=== PATIENT | female | born 1980 | race African-American/Black ===

== ENCOUNTER 2019-01-10 09:58 | Inpatient (IN) | payer OTHER ==
[~2019-01-10] VITALS: Ht 165.1 cm; Wt 63.5 kg
[2019-01-10] MEDS ORDERED: ASPIRIN 81MG TABLET PO ONE (11:30)
[2019-01-10 12:16] LABS: BASOPHILS % 0.2 % (0.0-2.0); HEMATOCRIT. 32.5 % (36.0-48.0); HEMOGLOBIN. 10.7 g/dL (12.0-16.0); LYMPHOCYTES % 12.6 % (20.0-50.0); MEAN CORPUSCULAR HEMOGLOBIN 28.4 pg (28.0-32.0); MEAN CORPUSCULAR VOLUME 85.9 fL (81.0-99.0); MEAN PLATELET VOLUME 8.1 fl (7.4-10.4); MONOCYTES % 8.8 % (2.0-8.0); NEUTROPHILS % 78.4 % (40.0-76.0); PLATELET 169 x1000/uL (130-400); RED BLOOD CELL COUNT 3.78 mill/uL (4.2-5.4); RED CELL DISTRIBUTION WIDTH 19.1 % (11.6-14.6)
[2019-01-10 12:19] LABS: CHLORIDE 116 mEq/L (98-107)
[2019-01-10 12:21] LABS: PARTIAL THROMBOPLASTIN TIME 22.2 sec (23.4-31.0)
[2019-01-10 12:23] LABS: ETHANOL BLOOD < 10 mg/dL
[2019-01-10 12:25] LABS: HCG SCREEN NEGATIVE
[2019-01-10 12:28] LABS: CREATINE KINASE 109 IU/L (26-192)
[2019-01-10] MEDS ORDERED: ONDANSETRON 4MG ODT PO ONE (13:15)
[2019-01-10] MEDS ORDERED: DILTIAZEM HCL 30MG TABLET PO ONE (13:15)
[2019-01-10] MEDS ORDERED: ONDANSETRON HCL 4MG/2ML INJ IV ONE (13:15)
[2019-01-10] MEDS ORDERED: KCL 20MEQ/100ML PREMIX 100 ML IV ONE (14:15)
[2019-01-10] MEDS ORDERED: LORAZEPAM 2MG/ML CPJ IV PRN (17:15)
[2019-01-10] MEDS ORDERED: HYDROCODONE/ACETAMINOPHEN 5/325MG TABLET PO PRN ×2 (17:15→22:45)
[2019-01-10] MEDS ORDERED: CLONIDINE 0.1MG TABLET PO PRN (17:15)
[2019-01-10] MEDS ORDERED: MAGNESIUM/ALUMINUM HYDROXIDE/SIMETHICONE 30ML UDC PO PRN (17:15)
[2019-01-10] MEDS ORDERED: ONDANSETRON HCL 4MG/2ML INJ IV PRN ×2 (17:15→22:45)
[2019-01-10] MEDS: SODIUM CHLORIDE 0.9% 1,000 ML IV SCH (18:19)
[2019-01-10 19:10] LABS: CLARITY URINE CLEAR (CLEAR); COLOR URINE YELLOW (YELLOW); KETONES URINE NEGATIVE (NEGATIVE); LEUKOCYTE ESTERASE URINE NEGATIVE (NEGATIVE); NITRITE URINE NEGATIVE (NEGATIVE); OCCULT BLOOD URINE TRACE (NEGATIVE); PH URINE 6.5 (4.5-8.0); PROTEIN URINE NEGATIVE (NEGATIVE); SPECIFIC GRAVITY URINE 1.014 (1.005-1.030); UROBILINOGEN URINE 0.2 E.U./dL (0.2-1.0)
[2019-01-10 19:26] LABS: *AMPHETAMINES SCREEN URINE NEGATIVE (NEGATIVE); *BENZODIAZEPINES SCREEN URINE NEGATIVE (NEGATIVE); *COCAINE SCREEN URINE NEGATIVE (NEGATIVE)
[2019-01-10 19:27] LABS: METHADONE URINE SCREEN NEGATIVE (NEGATIVE); OPIATES URINE SCREEN NEGATIVE (NEGATIVE); PHENCYCLIDINE URINE SCREEN NEGATIVE (NEGATIVE)
[2019-01-10 19:28] LABS: *BARBITURATES SCREEN URINE NEGATIVE (NEGATIVE)
[2019-01-10 20:12] LABS: CANNABINOID URINE SCREEN PRESUMTIVE POSITIVE (NEGATIVE)
[2019-01-10] MEDS ORDERED: SODIUM CHLORIDE 0.9% 1,000 ML IV SCH (22:37)
[2019-01-10] MEDS ORDERED: KCL 10MEQ/50ML PREMIX 50 ML IV ONE (22:45)
[2019-01-10] MEDS ORDERED: MORPHINE SULFATE 2 MG/ML CPJ (NOT FOR IM USE) IV PRN (22:45)
[2019-01-10] MEDS ORDERED: DOCUSATE SODIUM 100MG CAPSULE PO PRN (22:45)
[2019-01-10] MEDS ORDERED: ACETAMINOPHEN 325MG TABLET PO PRN (22:45)
[2019-01-11] MEDS: MORPHINE SULFATE 4 MG/ML CPJ (NOT FOR IM USE) IV PRN ×3 (03:24→16:10)
[2019-01-11] MEDS: SODIUM CHLORIDE 0.9% 1,000 ML IV SCH (03:27)
[2019-01-11 03:30] VITALS: BP 117/84
[2019-01-11] MEDS ORDERED: TC025C15 TOP (04:49)
[2019-01-11] MEDS ORDERED: LORA2TAB2 PO (04:50)
[2019-01-11] MEDS ORDERED: HYDR200T35 PO (04:51)
[2019-01-11] MEDS ORDERED: MINO2.5T2 PO (04:52)
[2019-01-11] MEDS ORDERED: FERR325T6 PO (04:54)
[2019-01-11] MEDS ORDERED: METO25TA6 PO (04:54)
[2019-01-11] MEDS ORDERED: ASPI-986 PO (04:56)
[2019-01-11] MEDS ORDERED: ASPI-1158 PO (04:56)
[2019-01-11] MEDS ORDERED: METR-218 PO (04:57)
[2019-01-11] MEDS ORDERED: FLUC200T51 PO (04:58)
[2019-01-11] MEDS ORDERED: KCL 10MEQ/50ML PREMIX 50 ML IV NR (05:00)
[2019-01-11] MEDS ORDERED: OMEP20TA2 PO (05:01)
[2019-01-11] MEDS ORDERED: PRED10TA23 PO (05:01)
[2019-01-11] MEDS ORDERED: MYCO360T PO (05:03)
[2019-01-11 08:00] VITALS: BP 112/77
[2019-01-11] MEDS ORDERED: FOLIC ACID 1MG TABLET PO SCH (09:00)
[2019-01-11] MEDS ORDERED: AMLODIPINE 10MG TABLET PO SCH (09:00)
[2019-01-11] MEDS ORDERED: ENOXAPARIN 40MG/0.4ML SYR SUBCUT SCH (09:00)
[2019-01-11] MEDS ORDERED: ASPIRIN 81MG EC TABLET PO SCH (09:00)
[2019-01-11] MEDS: THIAMINE HCL 100MG TABLET PO SCH (09:56)
[2019-01-11] MEDS: ASPIRIN 81MG EC TABLET PO SCH (09:56)
[2019-01-11] MEDS: MYCOPHENOLATE SODIUM 180 MG TABLET.DR PO SCH ×2 (09:56→18:06)
[2019-01-11] MEDS: FOLIC ACID 1MG TABLET PO SCH (09:57)
[2019-01-11] MEDS: HYDROXYCHLOROQUINE SULFATE 200MG TABLET PO SCH ×2 (10:03→18:05)
[2019-01-11 12:00] VITALS: BP 119/85
[2019-01-11 12:50] LABS: BASOPHILS % 0.3 % (0.0-2.0); HEMATOCRIT. 32.2 % (36.0-48.0); HEMOGLOBIN. 10.8 g/dL (12.0-16.0); MEAN CORPUSCULAR HEMOGLOBIN 28.5 pg (28.0-32.0); MEAN CORPUSCULAR VOLUME 85.4 fL (81.0-99.0); MEAN PLATELET VOLUME 8.1 fl (7.4-10.4); MONOCYTES % 6.5 % (2.0-8.0); NEUTROPHILS % 78.2 % (40.0-76.0); PLATELET 158 x1000/uL (130-400); RED BLOOD CELL COUNT 3.77 mill/uL (4.2-5.4); RED CELL DISTRIBUTION WIDTH 19.1 % (11.6-14.6)
[2019-01-11 12:57] LABS: CHLORIDE 114 mEq/L (98-107)
[2019-01-11] MEDS: POTASSIUM CHLORIDE 20MEQ TABLET SR PO SCH (13:24)
[2019-01-11] MEDS ORDERED: POTASSIUM CHLORIDE 20MEQ TABLET SR PO SCH (14:15)
[2019-01-11 16:00] VITALS: BP 113/85
[2019-01-11] MEDS ORDERED: DILTIAZEM HCL 5MG/ML 5ML VIAL IV NR (16:15)
[2019-01-11] MEDS ORDERED: DILTIAZEM HCL 5MG/ML 5ML VIAL IV PRN (16:30)
[2019-01-11] MEDS: DILTIAZEM HCL 60MG TABLET PO SCH (18:00)
[2019-01-11] MEDS: ENOXAPARIN 80MG/0.8ML SYR SUBCUT SCH (18:18)
[2019-01-11 20:00] VITALS: BP 100/63
[2019-01-11] MEDS: DEXT 5%/0.9% NACL 1,000 ML IV SCH (23:19)
[2019-01-12] VITALS: BP 101/59
[2019-01-12 04:00] VITALS: BP 120/85
[2019-01-12] MEDS: DILTIAZEM HCL 60MG TABLET PO SCH ×4 (05:12→17:57)
[2019-01-12] MEDS: ENOXAPARIN 80MG/0.8ML SYR SUBCUT SCH (05:12)
[2019-01-12 06:43] LABS: CHLORIDE 110 mEq/L (98-107)
[2019-01-12 06:58] LABS: LDL CHOLESTEROL 122 mg/dL (5-100)
[2019-01-12 07:00] LABS: HDL CHOLESTEROL 40 mg/dL (40-59)
[2019-01-12 07:43] LABS: BASOPHILS % 0.1 % (0.0-2.0); EOSINOPHILS % 0.2 % (0.0-5.0); HEMATOCRIT. 29.2 % (36.0-48.0); HEMOGLOBIN. 9.9 g/dL (12.0-16.0); LYMPHOCYTES % 19.7 % (20.0-50.0); MEAN CORPUSCULAR HEMOGLOBIN 29.1 pg (28.0-32.0); MEAN CORPUSCULAR VOLUME 85.7 fL (81.0-99.0); MEAN PLATELET VOLUME 8.3 fl (7.4-10.4); MONOCYTES % 5.9 % (2.0-8.0); NEUTROPHILS % 74.1 % (40.0-76.0); PLATELET 152 x1000/uL (130-400); RED BLOOD CELL COUNT 3.41 mill/uL (4.2-5.4); RED CELL DISTRIBUTION WIDTH 19.3 % (11.6-14.6)
[2019-01-12 08:00] VITALS: BP 108/68
[2019-01-12] MEDS: POTASSIUM CHLORIDE 20MEQ TABLET SR PO SCH ×2 (09:00→09:36)
[2019-01-12] MEDS ORDERED: POTASSIUM CHLORIDE 20MEQ TABLET SR PO SCH (09:00)
[2019-01-12] MEDS: HYDROXYCHLOROQUINE SULFATE 200MG TABLET PO SCH ×2 (09:35→17:55)
[2019-01-12] MEDS: MYCOPHENOLATE SODIUM 180 MG TABLET.DR PO SCH ×2 (09:35→17:55)
[2019-01-12] MEDS: ASPIRIN 81MG EC TABLET PO SCH (09:36)
[2019-01-12] MEDS: THIAMINE HCL 100MG TABLET PO SCH (09:36)
[2019-01-12] MEDS: FOLIC ACID 1MG TABLET PO SCH (09:36)
[2019-01-12] MEDS: POTASSIUM CHLORIDE 20MEQ TABLET SR PO NR ×2 (09:45→10:26)
[2019-01-12] MEDS ORDERED: MAGNESIUM 2 G PREMIX 50 ML IV NR (12:00)
[2019-01-12] MEDS ORDERED: KCL 20MEQ/100ML PREMIX 100 ML IV NR (12:00)
[2019-01-12] MEDS: DEXT 5%/0.9% NACL 1,000 ML IV SCH (14:06)
[2019-01-12] MEDS: MORPHINE SULFATE 4 MG/ML CPJ (NOT FOR IM USE) IV PRN ×2 (14:20→19:05)
[2019-01-12 16:00] VITALS: BP 109/73
[2019-01-12 20:00] VITALS: BP 107/69
[2019-01-12] MEDS ORDERED: ENOXAPARIN 60MG/0.6ML SYR SUBCUT SCH (21:00)
[2019-01-12 21:16] VITALS: BP 107/69
== END 2019-01-12 22:40 | disposition short-term general hospital (02) | DRG 545 ==
LOC: ER 10:14 → EDBEDREQ 14:40 → ENRESERV 01-11 00:54 → 8WST 01-11 02:52
PROVIDERS: ADMIT Internal Medicine Nephrology; ATTEND Internal Medicine Nephrology
DX: M32.14 Glomerular disease in systemic lupus erythematosus (principal); K85.90 Acute pancreatitis without necrosis or infection, unspecified; E43 Unspecified severe protein-calorie malnutrition; D63.8 Anemia in other chronic diseases classified elsewhere; E83.42 Hypomagnesemia; E87.6 Hypokalemia; I48.0 Paroxysmal atrial fibrillation; F41.9 Anxiety disorder, unspecified; Z90.49 Acquired absence of other specified parts of digestive tract; Z68.23 Body mass index [BMI] 23.0-23.9, adult; Z98.891 History of uterine scar from previous surgery; Z79.899 Other long term (current) drug therapy; Z88.0 Allergy status to penicillin
CPT/HCPCS: 36415; 71045; 80048; 80061; 80305; 82550; 83605; 83735; 83880; 84443; 84484; 84703; 87077; 87186; 93005; 93306; 96365; 96366; 96372; 96375; 97163; 99285; J1650; J2270; J2405; J3475; J3480; J3490; J7042; J7050; J7517

== ENCOUNTER 2020-11-15 11:18 | Emergency (ER) | payer OTHER ==
[~2020-11-15] VITALS: Ht 160 cm; Wt 70.0 kg
[~2020-11-15 11:18] MED LIST: ASPI-1158 PO; FERR325T6 PO; FLUC200T51 PO; HYDR200T35 PO; LORA2TAB2 PO; METO25TA6 PO; METR-167 PO; MINO2.5T2 PO; MYCO360T PO; OMEP20TA2 PO; PRED10TA23 PO; TC025C15 TOP
[2020-11-15 11:25] VITALS: BP 144/86
== END 2020-11-15 13:22 | disposition left against medical advice (07) ==
LOC: ER 11:31
DX: R53.1 Weakness (principal); F41.9 Anxiety disorder, unspecified; M32.9 Systemic lupus erythematosus, unspecified; I10 Essential (primary) hypertension; I48.91 Unspecified atrial fibrillation; Z88.2 Allergy status to sulfonamides; Z79.82 Long term (current) use of aspirin; Z79.01 Long term (current) use of anticoagulants
CPT/HCPCS: 93005; 99283

== ENCOUNTER 2025-06-15 23:37 | Emergency (ER) | payer OTHER ==
[~2025-06-15] VITALS: Ht 160 cm; Wt 59.0 kg
[~2025-06-15 23:37] MED LIST changes: -ASPI-1158 PO; +ASPI-1406 PO; -OMEP20TA2 PO; +OMEP20TA23 PO
[2025-06-15 23:54] VITALS: O2SAT 100
[2025-06-16 01:52] LABS: BASOPHILS % 1.2 % (0.0-2.0); EOSINOPHILS % 8.5 % (0.0-5.0); HEMATOCRIT. 30.4 % (36.0-48.0); HEMOGLOBIN. 10.4 g/dL (12.0-16.0); LYMPHOCYTES % 16.8 % (20.0-50.0); MEAN PLATELET VOLUME 7.2 fl (7.4-10.4); MONOCYTES % 7.2 % (2.0-8.0); NEUTROPHILS % 66.3 % (40.0-76.0); PLATELET 87 x1000/uL (130-400); RED BLOOD CELL COUNT 3.47 mill/uL (4.2-5.4); RED CELL DISTRIBUTION WIDTH 19.5 % (11.6-14.6)
[2025-06-16 02:06] LABS: INR 1.0
[2025-06-16 02:08] LABS: UREA NITROGEN BLOOD 35 mg/dL (9-23)
[2025-06-16 02:09] LABS: ETHANOL BLOOD < 10 mg/dL (<10); TROPONIN I HIGH SENSITIVITY 17 ng/L (3.0-34)
[2025-06-16] MEDS: ACETAMINOPHEN 325MG TABLET PO NR (02:12)
[2025-06-16] MEDS: MORPHINE SULFATE 2 MG/ML INJ (NOT FOR IM USE) IV NR (02:13)
[2025-06-16 02:33] LABS: CREATININE 6.5 mg/dL (0.6-1.0)
[2025-06-16] MEDS: HYDRALAZINE 20MG/ML VIAL IV NR (04:16)
[2025-06-16 06:13] LABS: TROPONIN I HIGH SENSITIVITY 11 ng/L (3.0-34)
[2025-06-16 06:19] LABS: *AMPHETAMINES SCREEN URINE NEGATIVE (NEGATIVE); *BARBITURATES SCREEN URINE NEGATIVE (NEGATIVE); *BENZODIAZEPINES SCREEN URINE NEGATIVE (NEGATIVE); *COCAINE SCREEN URINE NEGATIVE (NEGATIVE); CANNABINOID URINE SCREEN NEGATIVE (NEGATIVE); ECSTASY MDMA SCREEN URINE NEGATIVE (NEGATIVE); METHADONE URINE SCREEN NEGATIVE (NEGATIVE); PHENCYCLIDINE URINE SCREEN NEGATIVE (NEGATIVE)
[2025-06-16] MEDS: HYDRALAZINE 20MG/ML VIAL IV ONE (06:31)
[2025-06-16 06:32] VITALS: BP 183/104; PULSE 57; RESP 14; TEMP 36.7; O2SAT 100
[2025-06-16 06:37] LABS: OPIATES URINE SCREEN NEGATIVE (NEGATIVE)
== END 2025-06-16 07:00 | disposition short-term general hospital (02) ==
LOC: ER 23:37 → EDBEDREQTM 06-16 05:17 → EDBEDREQ 06-16 05:17 → ER 06-16 07:00
DX: R51.9 Headache, unspecified (principal); I12.0 Hypertensive chronic kidney disease with stage 5 chronic kidney disease or end stage renal disease; N18.6 End stage renal disease; R06.02 Shortness of breath; Z79.899 Other long term (current) drug therapy; Z88.0 Allergy status to penicillin; Z99.2 Dependence on renal dialysis
CPT/HCPCS: 36415 ×2; 71045; 93005; 99285; 80305; 80048; 80320; 83880; 85025; 85610; 85730; 84484; 70450; 96374; 96375; 96376; J0360; J2270; Z7610; G0480